=== PATIENT | male | born 2005 | race Caucasian/White ===

== ENCOUNTER 2025-05-23 21:54 | Emergency (ER) | payer BC, SELFPAY ==
[2025-05-23] VITALS (14 sets, daily range): BP systolic 127–166; BP diastolic 79–127; PULSE 87–124; RESP 11–25; TEMP 37.1; O2SAT 94–100
--- NOTE | 2025-05-23 22:44 | ED_ITS ---
HPI - General Adult General Chief complaint: Allergic Reaction Stated complaint: allergic reaction/used epipen Time Seen by Provider: 05/23/25 22:07 History of Present Illness HPI narrative: Pt states he ate [employer] around 2139 and didn't realize it had cashews in it, which he is very allergic to. Pt states he felt throat closing up and gave himself epi pen (around 2154) and two Benadryl tablets. Pt states he then vomited in car on way to hospital. Pt states breathing improved after epi pen, but throat still feels really tight. 19-year-old young man presenting to the emergency department with concern of anaphylaxis. I am contacted by nursing with concerns of potentially severe reaction to see immediately in room 8. Initial symptom was some shortness of breath or chest tightness. Initially not described as throat tightening but more of a the like he was gagging on something later he says that throat tightening was was contributing to his shortness of breath. Did not note any rash. Admits history of anxiety and that this might be contributing to his current symptoms in addition to the epinephrine effect. Shortly after eating this chicken harpreet junior, he began to have these symptoms. About 20 minutes prior to arrival in the emergency department he had dosed himself with epinephrine after initially taking 50 mg of diphenhydramine Did vomit in the car on the way over. Nausea less symptoms now. Overall improved. Only other experience with allergy like this was eating a bowl of cashew pesto served to him by [place] mother when he was studying abroad in [place]. This was when he realized he was allergic. Related Data Home Medications ?Medication ?Instructions ?Recorded ?Confirmed cetirizine .ROUTE 05/23/25 emtricitabine-tenofovir (TDF) .ROUTE 05/23/25 epinephrine .ROUTE 05/23/25 lisdexamfetamine 20 mg capsule 20 mg PO DAILY 05/23/25 05/23/25 (Vyvanse) sertraline 50 mg tablet (Zoloft) 50 mg PO DAILY 05/23/25 Previous Rx's ?Medication ?Instructions ?Recorded epinephrine 0.3 mg/0.3 mL 0.3 mg (0.3 mL) IM Q5-15M IA N #1 ea 11/18/25 injection, auto-injector (EpiPen 2-Gideon) Allergies Allergy/AdvReac Type Severity Reaction Status Date / Time cashew nut Allergy Severe Anaphylaxis Verified 05/23/25 22:04 tree nut Allergy Severe Anaphylaxis Verified 05/23/25 22:04 HPV Vaccine Allergy Severe Hives Uncoded 05/23/25 22:04 Review of Systems Status of ROS: Reports: 6 or more systems reviewed and unremarkable except as noted in History and [facility] History Smoking Status: Never smoker Do you use any of these nicotine containing products: None Second hand tobacco smoke exposure: No How often do you have a drink containing alcohol: never How often do you have six or more drinks on one occasion: Never AUDIT-C Alcohol total score: 0 Non-prescribed substance use: denies use service: No Exam Narrative: Exam Narrative: Pleasant. Does appear little tremulous and stressed. Breathing easily though localization, conversation sounds thick. Oropharynx posteriorly looks faintly erythematous maybe with a little edema. No tongue swelling appreciated. Lungs are clear without wheeze. There is no stridor. Abdomen is soft nontender. Extremities well perfused. Skin is warm dry without rashes. Heart is tachycardic in a regular rhythm. Const: Vital Signs, click to edit/add: Vital Signs - 24 hr 05/23/25 21:57 05/23/25 22:31 Temperature 98.7 F Pulse Rate [Pulse Oximeter] 124 H Respiratory Rate 20 Blood Pressure [Ri ght Upper Arm] 127/79 Pulse Oximetry 96 98 Oxygen Delivery Me thod Room Air Documenting provider has reviewed patient's vital signs: yes Course Vital Signs Vital signs: Initial Vital Signs Temperature 98.7 F 05/23/25 21:57 Temperature Source Temporal Artery Scan 05/23/25 21:57 Pulse Rate 124 H 05/23/25 21:57 Respiratory Rate 20 05/23/25 21:57 Blood Pressure 127/79 05/23/25 21:57 Blood Pressure Mean 95 05/23/25 21:57 Blood Pressure Position Sitting 05/23/25 21:57 Pulse Oximetry 96 05/23/25 21:57 Oxygen Delivery Method Room Air 05/23/25 21:57 Vital Signs Temperature 98.7 F 05/23/25 21:57 Pulse Rate 124 H 05/23/25 21:57 Respiratory Rate 20 05/23/25 21:57 Blood Pressure 127/79 05/23/25 21:57 Pulse Oximetry 96 05/23/25 21:57 Oxygen Delivery Method Room Air 05/23/25 21:57 Temperature 98.7 F 05/23/25 21:57 Pulse Rate 85 05/24/25 01:30 Respiratory Rate 12 05/24/25 01:30 Blood Pressure 101/49 L 05/24/25 01:02 Pulse Oximetry 95 05/24/25 01:30 Oxygen Delivery Method Room Air 05/23/25 21:57 Medications Administered Medications: Discontinued Medications Generic Name Dose Route Start Last Admin Trade Name Freq PRN Reason Stop Dose Admin Diphenhydramine HCl 25 mg 05/23/25 22:16 05/23/25 22:24 Diphenhydramine 50 Mg/Ml Inj IVP 05/23/25 22:17 25 mg ONCE ONE Administration Sodium Chloride 1,000 mls @ 1,000 mls/hr 05/23/25 22:16 05/24/25 01:48 0.9 % Sodium Chloride 1000 Ml IV 05/23/25 23:15 Infused .Q1H ONE Infusion Lorazepam 0.5 mg 05/23/25 22:17 05/23/25 22:25 Lorazepam 2 Mg/Ml Inj IVP 05/23/25 22:18 0.5 mg ONCE ONE Administration Methylprednisolone Sodium Succinate 80 mg 05/23/25 22:16 05/23/25 22:24 Methylprednisolone Sod Succ 40 Mg/Ml IVP 05/23/25 22:17 80 mg ONCE ONE Administration Medical Decision Making [facility] Narrative Medical decision making narrative: Consistent with anaphylactic reaction. Known nut allergy. Feels like overall he has improved. With normal vitals and without escalating symptoms or significant symptoms are respiratory distress I think will wait with re-dosing epinephrine. Prefer IV diphenhydramine, Ativan and normal saline along with Solu-Medrol. Monitor on quality assurance monitor and oximetry. 10:55 p.m. on reassessment is markedly improved. Laughing with friends Anticipate monitoring for somewhere at least 3-4 hours after self dosing of epinephrine. On final reassessment, has remained well. No events on quality assurance monitor. Stable vitals otherwise. Voice sounds still a little thick which I think is more his own timbre, although admittedly less than before. Oropharyngeal examination is now without erythema and without evidence of edema. I do think there was some of his present prior. See patient discharge plan for further discussion Continue to take care around food you have not prepared yourself. I am prescribing for you some prednisone from [facility] over the next 3 days. Can take diphenhydramine for breakthrough itch or irritation. If you have escalating sensation of throat tightening, tongue swelling or any indication of difficulty breathing, would take diphenhydramine and return to the emergency department. More intense symptoms though would also prompt epinephrine dosing. Prescribing EpiPen refill as well. Critical Care Time Critical Care Time Critical Care Time: Yes Attestation: The patient required my highest level preparedness to intervene emergently and I personally spent this critical care time directly and personally managing the patient. This critical care time included: Obtaining a history; Examining the patient; Pulse oximetry; Ordering and reviewing of studies; Arranging urgent treatment with development of a management plan; Evaluation of patients response to treatment; Frequent reassessment discussions with other providers. This critical care time was performed to assess and manage the high probability of imminent life-threatening deterioration that could result in multiorgan failure. It was exclusive of separate billable procedures and treating other patients and teaching time. Total Critical Care Time in Minutes: 45 Discharge Plan Discharge Clinical Impression: Anaphylaxis Patient Disposition: Home w/ Parent or Adult Condition: Improved Additional Instructions: Continue to take care around food you have not prepared yourself. I am prescribing for you some prednisone from [facility] over the next 3 days. Can take diphenhydramine for breakthrough itch or irritation. If you have escalating sensation of throat tightening, tongue swelling or any indication of difficulty breathing, would take diphenhydramine and return to the emergency department. More intense symptoms though would also prompt epinephrine dosing. Prescribing EpiPen refill as well. Prescriptions: New epinephrine [EpiPen 2-Gideon] 0.3 mg/0.3 mL auto-injector 0.3 mg IM Q5-15M PRNQty: 1 0RF Rx Instructions: do not exceed 3 doses per episode No Action epinephrine [Epi E-Z Pen] .ROUTE lisdexamfetamine [Vyvanse] 20 mg capsule 20 mg PO DAILY sertraline [Zoloft] 50 mg tablet 50 mg PO DAILY cetirizine [Zyrtec] .ROUTE emtricitabine-tenofovir (TDF) [Truvada] .ROUTE Follow Up/Referrals: Provider,Not a Local [Primary Care Provider, Family Practice] Stand Alone Forms: [facility] Info Instructions
[2025-05-24] VITALS (9 sets, daily range): BP systolic 101–118; BP diastolic 49–70; PULSE 70–86; RESP 12–25; O2SAT 93–97
== END 2025-05-24 01:48 | disposition home or self-care (01) ==
PROVIDERS: Emergency Provider Family Medicine
DX: R06.02 Shortness of breath (principal); T78.05XA Anaphylactic reaction due to tree nuts and seeds, initial encounter
CPT/HCPCS: 94761; 96361; 96374; 96375; 99284; 99291; J1200; J2060; J2919; J7030